=== PATIENT | male | born 1945 | race Caucasian/White ===

== ENCOUNTER 2017-09-13 15:00 | Outpatient (RCR) | payer OTHER | END 2017-09-15 | disposition home or self-care (01) | LOC: PTY 15:00 | DX: M17.12 Unilateral primary osteoarthritis, left knee (principal) ==

== ENCOUNTER 2017-10-08 11:00 | Outpatient (RCR) | payer OTHER | END 2017-10-13 | disposition home or self-care (01) | LOC: PTY 11:00 | DX: M17.12 Unilateral primary osteoarthritis, left knee (principal) ==

== ENCOUNTER 2017-10-15 10:00 | Outpatient (RCR) | payer OTHER | END 2017-11-13 | disposition home or self-care (01) | LOC: PTY 10:00 | DX: M17.12 Unilateral primary osteoarthritis, left knee (principal) ==